=== PATIENT | female | born 1975 | race Caucasian/White ===

== ENCOUNTER 2021-06-21 18:18 | Emergency (ER) | payer SELFPAY | END 2021-06-21 20:29 | disposition home or self-care (01) | LOC: FER 18:18 | DX: S93.402A Sprain of unspecified ligament of left ankle, initial encounter (principal); I10 Essential (primary) hypertension; X50.1XXA Overexertion from prolonged static or awkward postures, initial encounter; Y92.008 Other place in unspecified non-institutional (private) residence as the place of occurrence of the external cause | CPT/HCPCS: 73610; 73630 ==

== ENCOUNTER 2021-09-14 17:59 | Emergency (ER) | payer SELFPAY ==
[2021-09-14 19:23] LABS: BASOPHIL 0.4 % (0-2); EOSINOPHIL 1.3 % (0-5); HCT 38.7 % (37.0-47.0); HGB 12.9 g/dl (12.5-16.0); LYMPHOCYTE 29.9 % (15-48); MCH 27.6 pg (25.0-31.0); MCHC 33.3 g/dL (32.0-36.0); MCV 82.7 fL (78.0-100.0); MONOCYTE 5.4 % (0-12); NEUTROPHIL 62.7 % (41-80); NRBC 0; PLT 247 K/uL (150-400); RBC 4.68 M/uL (4.20-5.40); RDW 13.5 % (11.5-14.0)
[2021-09-14 19:40] LABS: BUN/CREAT RATIO (CALC) 16.7 RATIO; CREATININE 0.72 mg/dL (0.51-0.95)
[2021-09-14 19:54] LABS: CORONAVIRUS 2019 SARS-COV-2 NEGATIVE (NEGATIVE); INFLUENZA A NAA NEGATIVE (NEGATIVE)
== END 2021-09-14 21:41 | disposition home or self-care (01) ==
LOC: FER 17:59
PROVIDERS: Nurse Practitioner Family
DX: B34.9 Viral infection, unspecified (principal); Z20.822 Contact with and (suspected) exposure to COVID-19
CPT/HCPCS: 36415; 80048; 85025; J1100; J1885; J2405; J7030; U0002

== ENCOUNTER 2021-12-20 12:46 | Emergency (ER) | payer OTHER ==
[2021-12-20 17:07] LABS: BASOPHIL 0.3 % (0-2); EOSINOPHIL 1.5 % (0-5); HCT 39.6 % (37.0-47.0); HGB 13.1 g/dl (12.5-16.0); LYMPHOCYTE 30.7 % (15-48); MCH 27.8 pg (25.0-31.0); MCHC 33.1 g/dL (32.0-36.0); MCV 83.9 fL (78.0-100.0); MONOCYTE 5.2 % (0-12); MPV 9.1 fL (6.0-9.5); NRBC 0; PLT 224 K/uL (150-400); RBC 4.72 M/uL (4.20-5.40); RDW 14.2 % (11.5-14.0)
[2021-12-20 17:18] LABS: BUN/CREAT RATIO (CALC) 11.3 RATIO; CREATININE 0.71 mg/dL (0.51-0.95)
== END 2021-12-20 19:36 | disposition home or self-care (01) ==
LOC: FER 12:46
PROVIDERS: Nurse Practitioner Family
DX: L72.8 Other follicular cysts of the skin and subcutaneous tissue (principal); U07.1 COVID-19
CPT/HCPCS: 36415; 71275; 80048; 85025; 85379; 93971; J7030

== ENCOUNTER 2022-03-03 09:49 | Emergency (ER) | payer OTHER ==
[2022-03-03 10:46] LABS: BASOPHIL 0.3 % (0-2); EOSINOPHIL 1.6 % (0-5); HCT 41.3 % (37.0-47.0); HGB 13.6 g/dl (12.5-16.0); LYMPHOCYTE 32.3 % (15-48); MCH 27.9 pg (25.0-31.0); MCHC 32.9 g/dL (32.0-36.0); MCV 84.6 fL (78.0-100.0); MONOCYTE 5.2 % (0-12); MPV 9.2 fL (6.0-9.5); NEUTROPHIL 60.3 % (41-80); NRBC 0; PLT 296 K/uL (150-400); RBC 4.88 M/uL (4.20-5.40); WBC 9.3 K/uL (4.0-10.5)
[2022-03-03 11:01] LABS: IRON % SATURATION 17.1 %SAT (20-50); PROTHROMBIN TIME 12.6 SECONDS (11.8-13.4); PTT 28.5 SECONDS (24.4-34.7)
[2022-03-03 11:02] LABS: D-DIMER 0.32 ug/mLFEU (0.00-0.41)
[2022-03-03 11:08] LABS: ALBUMIN 4.1 g/dL (3.4-5.0); BILIRUBIN - TOTAL 0.5 mg/dL (0.2-1.0); BUN/CREAT RATIO (CALC) 11.2 RATIO; C-REACTIVE PROTEIN 1.6 mg/dL (<=0.90); CREATININE 0.8 mg/dL (0.51-0.95); GLOBULIN (CALCULATION) 4.8 g/dL; MAGNESIUM 1.9 mg/dL (1.8-2.4); POTASSIUM 4.2 mmol/L (3.5-5.1); TOTAL PROTEIN 8.9 g/dL (6.4-8.2)
[2022-03-03 11:25] LABS: LACTIC ACID 1.8 mmol/L (0.4-1.9)
[2022-03-03 12:04] LABS: BILIRUBIN NEGATIVE (NEGATIVE); BLOOD NEGATIVE Ery/uL (NEGATIVE); CLARITY CLEAR (CLEAR); COLOR YELLOW (YELLOW); GLUCOSE (U) NORMAL (NORMAL); LEUKOCYTES TRACE Leu/uL (NEGATIVE); NITRITE NEGATIVE (NEGATIVE); PROTEIN NEGATIVE (NEGATIVE); UROBILINOGEN 0.2 mg/dL (0.2-1.0)
[2022-03-03 14:34] LABS: BACTERIA 2+
[2022-03-03] MEDS ORDERED: SYNTHROID50 MCG PO (16:22)
[2022-03-03] MEDS ORDERED: XANAX0.5 MG PO (16:22)
== END 2022-03-03 16:42 | disposition home or self-care (01) ==
LOC: FER 09:49
PROVIDERS: Emergency Medicine
DX: E03.9 Hypothyroidism, unspecified (principal); R42 Dizziness and giddiness; F41.9 Anxiety disorder, unspecified
CPT/HCPCS: 36415; 80053; 81001; 83540; 83550; 83605; 83690; 83735; 83880; 84439; 84443; 84484; 85025; 85379; 85610; 85730; 86140; 93005; J1170

== ENCOUNTER 2022-03-30 08:16 | Emergency (ER) | payer SELFPAY ==
[~2022-03-30 08:16] MED LIST: SYNTHROID50 MCG PO; XANAX0.5 MG PO
[2022-03-30 09:50] LABS: PROTHROMBIN TIME 13.6 SECONDS (11.8-13.4); PTT 28.2 SECONDS (24.4-34.7)
[2022-03-30 09:51] LABS: D-DIMER < 0.27 ug/mLFEU (0.00-0.41)
[2022-03-30 10:12] LABS: ALBUMIN 3.9 g/dL (3.4-5.0); ALKALINE PHOSHATASE 47 U/L (46-116); ALT 34 U/L (14-59); AST 21 U/L (15-37); BILIRUBIN - TOTAL 0.5 mg/dL (0.2-1.0); BUN 9 mg/dL (7-18); BUN/CREAT RATIO (CALC) 10.8 RATIO; CHLORIDE 101 mmol/L (98-107); CO2 (BICARBONATE) 28 mmol/L (21-32); CREATININE 0.83 mg/dL (0.51-0.95); GLOBULIN (CALCULATION) 3.9 g/dL; GLUCOSE 106 mg/dL (74-106); POTASSIUM 3.7 mmol/L (3.5-5.1); TOTAL PROTEIN 7.8 g/dL (6.4-8.2)
[2022-03-30 10:39] LABS: C-REACTIVE PROTEIN < 0.20 mg/dL (<=0.90)
[2022-03-30 11:21] LABS: IRON % SATURATION 20.5 %SAT (20-50)
[2022-03-30] MEDS ORDERED: XANAX0.5 MG PO (13:37)
== END 2022-03-30 14:05 | disposition home or self-care (01) ==
LOC: FER 08:16
PROVIDERS: Emergency Medicine
DX: R07.89 Other chest pain (principal); F41.1 Generalized anxiety disorder; I10 Essential (primary) hypertension
CPT/HCPCS: 36415; 71045; 80053; 82728; 83540; 83550; 84484; 85379; 85610; 85730; 86140; 93005; J2060

== ENCOUNTER 2022-04-15 12:23 | Emergency (ER) | payer OTHER ==
[2022-04-15 15:31] LABS: BASOPHIL 0.3 % (0-2); EOSINOPHIL 0.5 % (0-5); HCT 41.1 % (37.0-47.0); HGB 13.7 g/dl (12.5-16.0); LYMPHOCYTE 26.8 % (15-48); MCHC 33.3 g/dL (32.0-36.0); MCV 83.9 fL (78.0-100.0); MONOCYTE 5.5 % (0-12); MPV 9.3 fL (6.0-9.5); NEUTROPHIL 66.6 % (41-80); NRBC 0; PLT 263 K/uL (150-400); RDW 13.2 % (11.5-14.0); WBC 10.1 K/uL (4.0-10.5)
[2022-04-15 16:00] LABS: ALBUMIN 4.2 g/dL (3.4-5.0); BILIRUBIN - TOTAL 0.5 mg/dL (0.2-1.0); BUN/CREAT RATIO (CALC) 11.9 RATIO; CREATININE 0.84 mg/dL (0.51-0.95); GLOBULIN (CALCULATION) 4.4 g/dL; POTASSIUM 3.5 mmol/L (3.5-5.1); TOTAL PROTEIN 8.6 g/dL (6.4-8.2)
[2022-04-15 16:01] LABS: BILIRUBIN NEGATIVE (NEGATIVE); BLOOD NEGATIVE Ery/uL (NEGATIVE); CLARITY CLEAR (CLEAR); COLOR YELLOW (YELLOW); GLUCOSE (U) NORMAL (NORMAL); LEUKOCYTES 2+ Leu/uL (NEGATIVE); NITRITE POSITIVE (NEGATIVE); PROTEIN NEGATIVE (NEGATIVE); SPECIFIC GRAVITY 1.025 (1.001-1.030); UROBILINOGEN 0.2 mg/dL (0.2-1.0)
[2022-04-15 16:13] LABS: CORONAVIRUS 2019 SARS-COV-2 NEGATIVE (NEGATIVE); INFLUENZA A NAA NEGATIVE (NEGATIVE)
[2022-04-15 16:14] LABS: BACTERIA 3+; URINARY WBC TNTC
[2022-04-15 16:16] LABS: SQUAMOUS EPITHELIAL CELLS 20-50; URINARY RBC RARE; YEAST PRESENT
[2022-04-15] MEDS ORDERED: ONDANSETRON HCL4 MG PO (19:11)
[2022-04-15] MEDS ORDERED: KEFLEX250 MG PO (19:11)
== END 2022-04-15 19:38 | disposition home or self-care (01) ==
LOC: FER 12:23
PROVIDERS: Nurse Practitioner Family
DX: I10 Essential (primary) hypertension (principal); N39.0 Urinary tract infection, site not specified; F41.9 Anxiety disorder, unspecified; R10.2 Pelvic and perineal pain; R10.12 Left upper quadrant pain; R11.0 Nausea; Z20.822 Contact with and (suspected) exposure to COVID-19
CPT/HCPCS: 36415; 80053; 81001; 85025; 93005; J0696; J1885; J2060; J7030; U0002

== ENCOUNTER 2022-04-17 11:34 | Emergency (ER) | payer OTHER ==
[~2022-04-17 11:34] MED LIST changes: +KEFLEX250 MG PO; +ONDANSETRON HCL4 MG PO
[2022-04-17 13:07] LABS: BASOPHIL 0.4 % (0-2); EOSINOPHIL 0.8 % (0-5); HCT 39.5 % (37.0-47.0); HGB 13.4 g/dl (12.5-16.0); LYMPHOCYTE 24.8 % (15-48); MCH 28.5 pg (25.0-31.0); MCHC 33.9 g/dL (32.0-36.0); MONOCYTE 6.1 % (0-12); MPV 9.2 fL (6.0-9.5); NEUTROPHIL 67.3 % (41-80); NRBC 0; PLT 250 K/uL (150-400); RDW 12.9 % (11.5-14.0); WBC 7.2 K/uL (4.0-10.5)
[2022-04-17 13:31] LABS: BUN/CREAT RATIO (CALC) 10.5 RATIO; CREATININE 0.76 mg/dL (0.51-0.95); POTASSIUM 3.7 mmol/L (3.5-5.1)
== END 2022-04-17 16:08 | disposition home or self-care (01) ==
LOC: FER 11:34
PROVIDERS: Nurse Practitioner Family
DX: F41.9 Anxiety disorder, unspecified (principal); R07.89 Other chest pain; I10 Essential (primary) hypertension; Z88.8 Allergy status to other drugs, medicaments and biological substances
CPT/HCPCS: 36415; 71275; 80048; 84439; 84443; 84484; 85025; 85379; 93005; J7030; Q9967